=== PATIENT | male | born 1980 | race African-American/Black ===

== ENCOUNTER 2016-04-29 01:22 | Emergency (ER) | payer MEDICAID ==
[~2016-04-29] VITALS: Ht 170.2 cm; Wt 83.9 kg
[2016-04-29 02:26] VITALS: BP 127/77
== END 2016-04-29 02:32 | disposition home or self-care (01) ==
LOC: ER 01:25
DX: H10.9 Unspecified conjunctivitis (principal); F17.210 Nicotine dependence, cigarettes, uncomplicated